=== PATIENT | male | born 1945 | race Caucasian/White ===

== ENCOUNTER 2020-06-01 17:43 | Emergency (ER) | payer MEDICARE ==
--- NOTE | 2020-06-01 18:11 | XRAY Report ---
PROCEDURE: Chest 1 View X-Ray INDICATIONS: Chest pain TECHNIQUE: One view of the chest was acquired. COMPARISON: None FINDINGS: Surgical changes and devices: None. Lungs and pleura: No pleural effusions or pneumothorax. Lungs are clear. Mediastinum: Mediastinal contours appear normal. Heart size is normal. Bones and chest wall: No suspicious bony lesions. Overlying soft tissues appear unremarkable. IMPRESSION: No acute cardiopulmonary process demonstrated radiographically. Reviewed by: Tal Martin MD on 06/01/2020 6:10 PM PDT Approved by: Tal Martin MD on 06/01/2020 6:10 PM PDT Station ID: [id number]
[2020-06-01] MEDS ORDERED: diltiaZEM INJ 5 MG/ML VIAL IVP STA (18:20)
[2020-06-01 18:21] LABS: BASOPHILS % (AUTO) 0.5 %; EOSINOPHILS # (AUTO) 0.1 10^3/uL (0.0-0.7); EOSINOPHILS % (AUTO) 1.2 %; HCT - HEMATOCRIT 46.6 % (42.0-52.0); HGB - HEMOGLOBIN 16.1 g/dL (14.0-18.0); LYMPHOCYTES # (AUTO) 1.6 10^3/uL (1.5-3.5); LYMPHOCYTES % (AUTO) 21.8 %; MEAN CORPUSCULAR HEMOGLOBIN 34.8 pg (27.0-31.0); MEAN CORPUSCULAR HGB CONC 34.5 g/dL (32.0-36.0); MEAN CORPUSCULAR VOLUME 100.6 fL (80.0-94.0); MEAN PLATELET VOLUME 9.5 fL (7.4-11.4); MONOCYTES # (AUTO) 0.8 10^3/uL (0.0-1.0); MONOCYTES % (AUTO) 11.1 %; NEUTROPHILS # (AUTO) 4.8 10^3/uL (1.5-6.6); PLT - PLATELET COUNT 201 10^3/uL (130-450); RED BLOOD COUNT 4.63 10^6/uL (4.70-6.10); RED CELL DISTRIBUTION WIDTH 12.7 % (12.0-15.0); WHITE BLOOD COUNT 7.4 x10^3/uL (4.8-10.8)
[2020-06-01 18:33] LABS: ALBUMIN 4.7 g/dL (3.2-5.5); ALBUMIN/GLOBULIN RATIO 1.4 (1.0-2.2); BILIRUBIN,TOTAL 1.1 mg/dL (0.2-1.0); CALCIUM 9.6 mg/dL (8.5-10.3); CREATININE 1.1 mg/dL (0.6-1.2); POTASSIUM 4.3 mmol/L (3.5-5.0); TOTAL PROTEIN 8.1 g/dL (6.7-8.2)
--- NOTE | 2020-06-01 18:56 | ED Physician Documentation ---
History of Present Illness - Stated complaint Stated Complaint: FLUTTERY HEART - Chief complaint Chief Complaint: Cardiac - History obtained from History obtained from: Patient - History of Present Illness Timing: Today Pain level max: 0 Pain level now: 0 - Additonal information Additional information: Patient states that he was prepping for a colonoscopy tomorrow when he checked his heart rate and noted it to be high. Has a history of atrial fibrillation. States occasionally has heart rates into the 130's and 140's during the week. No chest pain. no shortness of breath. Review of Systems Constitutional: denies: Fever, Chills Ears: denies: Ear pain Nose: denies: Rhinorrhea / runny nose, Congestion Respiratory: denies: Cough GI: denies: Nausea, Vomiting, Diarrhea Skin: denies: Rash Musculoskeletal: denies: Neck pain, Back pain Neurologic: denies: Headache PD PAST MEDICAL HISTORY - Past Medical History Cardiovascular: Hypertension, High cholesterol, Atrial fibrillation - Past Surgical History Cardiovascular: Other - Present Medications Home Medications: Ambulatory Orders Medication Instructions Recorded Confirmed Apixaban [Eliquis] 5 mg PO BID 06/01/20 06/01/20 Atorvastatin [Lipitor] 1 tab PO DAILY 06/01/20 06/01/20 Hydrochlorothiazide 1 tab PO DAILY 06/01/20 06/01/20 Metoprolol Tartrate [Lopressor] 1 tab PO BID 06/01/20 06/01/20 Potassium Chloride [K-Dur] 1 tab PO DAILY 06/01/20 06/01/20 - Allergies Allergies/Adverse Reactions: Allergies Allergy/AdvReac Type Severity Reaction Status Date / Time No Known Drug Allergies Allergy Verified 06/01/20 17:53 - Social History Does the pt smoke?: No Smoking Status: Never smoker Does the pt drink ETOH?: Yes ETOH Use: Wine PD ED PE NORMAL - Vitals Vital signs reviewed: Yes - General General: Alert and oriented X 3, No acute distress, Well developed/nourished - HEENT HEENT: PERRL, Moist mucous membranes - Neck Neck: Supple, no meningeal sign - Cardiac Cardiac: Other (tachycardic) - Respiratory Respiratory: No respiratory distress, Clear bilaterally - Abdomen Abdomen: Soft, Non tender, Non distended - Derm Derm: Warm and dry - Extremities Extremities: No edema, No calf tenderness / cord - Neuro Neuro: Alert and oriented X 3 - Psych Psych: Normal mood, Normal affect Results - Vitals Vitals: Vital Signs - 24 hr 06/01/20 06/01/20 06/01/20 17:46 18:23 18:30 Temperature 35.9 C L Heart Rate 136 H 138 H 140 H Respiratory 16 19 16 Rate Blood Pressure 153/95 H 149/105 H 140/96 H O2 Saturation 97 100 100 06/01/20 06/01/20 06/01/20 18:40 18:45 18:51 Temperature Heart Rate 140 H 86 94 Respiratory 14 15 15 Rate Blood Pressure 136/91 H 109/57 L 115/66 O2 Saturation 100 100 99 06/01/20 06/01/20 06/01/20 19:00 19:30 20:00 Temperature Heart Rate 98 109 H 105 H Respiratory 13 24 20 Rate Blood Pressure 124/71 132/89 H 132/83 H O2 Saturation 97 99 98 06/01/20 06/01/20 06/01/20 20:30 21:00 21:30 Temperature Heart Rate 121 H 72 70 Respiratory 18 19 12 Rate Blood Pressure 136/79 H 125/64 108/63 O2 Saturation 99 99 98 Oxygen O2 Source Room air - EKG (time done) 1749 Rate: Rate (enter#) (138) Rhythm: Atrial flutter (RVR) [place]: Normal QRS: Normal Ischemia: Other (rate related changes.) - Labs Labs: Laboratory Tests 06/01/20 06/01/20 06/01/20 17:56 17:56 17:56 WBC 7.4 RBC 4.63 L Hgb 16.1 Hct 46.6 MCV 100.6 H MCH 34.8 H MCHC 34.5 RDW 12.7 Plt Count 201 MPV 9.5 Neut # (Auto) 4.8 Lymph # (Auto) 1.6 [place] # (Auto) 0.8 Eos # (Auto) 0.1 Baso # (Auto) 0.0 Absolute Nucleated RBC 0.00 Nucleated RBC % 0.0 Sodium 136 Potassium 4.3 Chloride 95 L Carbon Dioxide 24 Anion Gap 17.0 H BUN 21 H Creatinine 1.1 Estimated GFR (MDRD) 65 L Glucose 125 H Calcium 9.6 Total Bilirubin 1.1 H AST 32 ALT 25 Alkaline Phosphatase 74 Troponin I High Sens 18.2 Total Protein 8.1 Albumin 4.7 Globulin 3.4 Albumin/Globulin Ratio 1.4 Lipase 36 - Rads (name of study) cxr Radiology: Prelim report reviewed, EMP read contemporaneously, See rad report (No acute cardiopulmonary process demonstrated radiographically. ) PD MEDICAL DECISION MAKING - ED course Complexity details: reviewed results, re-evaluated patient, considered differential, d/w patient ED course: Patient did slow down with diltiazem, clearly in atrial fibrillation. He was then placed on a procainamide drip and did convert back into sinus rhythm. He is anticoagulated already. Patient remained asymptomatic in the emergency department. We will have him follow-up with his doctor for further care. Patient counseled regarding signs and symptoms for which I believe and urgent re-evaluation would be necessary. Patient with good understanding of and agreement to plan and is comfortable going home at this time This document was made in part using voice recognition software. While efforts are made to proofread this document, sound alike and grammatical errors may occur. Departure - Departure Disposition: 01 Home, Self Care Clinical Impression: Atrial fibrillation with RVR Condition: Good Instructions: ED Afib Follow-Up: Leon Sen MD [Primary Care Provider] - TREVOR AUGUSTINE MD [Physician No Access] - Within 1 week Comments: Continue your medications at home as previously prescribed. Return if you worsen. Follow-up with your doctor for further care. you have converted back into sinus rhythm tonight.
[2020-06-01] MEDS ORDERED: diltiaZEM 30 MG TABLET PO STA (18:59)
[2020-06-01] MEDS ORDERED: PROCAINAMIDE 1,000 MG in SODIUM CHLORIDE 0.9% 240 ML IV SCH (20:00)
[2020-06-01] MEDS ORDERED: PROCAINAMIDE 1,000 MG in SODIUM CHLORIDE 0.9% 240 ML IV ONE (20:17)
[2020-06-01] MEDS ORDERED: PROCAINAMIDE 1,000 MG/10 ML SYRINGE ONE (20:33)
[2020-06-01 21:41] VITALS: BP 108/63
== END 2020-06-01 21:59 | disposition home or self-care (01) ==
LOC: ED 17:43
DX: I48.91 Unspecified atrial fibrillation (principal)
CPT/HCPCS: 36415; 71045; 80053; 83690; 84484; 85025; 93005; 96365; 96375; 99283; 99285; A9270; J2690

== ENCOUNTER 2020-09-04 11:58 | Emergency (ER) | payer MEDICARE ==
[2020-09-04] MEDS ORDERED: PROCAINAMIDE 1,000 MG in SODIUM CHLORIDE 0.9% 240 ML IV STA (12:25)
[2020-09-04 12:28] LABS: BASOPHILS % (AUTO) 0.4 %; EOSINOPHILS # (AUTO) 0.1 10^3/uL (0.0-0.7); EOSINOPHILS % (AUTO) 1.6 %; HCT - HEMATOCRIT 43.1 % (42.0-52.0); HGB - HEMOGLOBIN 14.6 g/dL (14.0-18.0); LYMPHOCYTES # (AUTO) 1.2 10^3/uL (1.5-3.5); LYMPHOCYTES % (AUTO) 15.4 %; MEAN CORPUSCULAR HEMOGLOBIN 33.8 pg (27.0-31.0); MEAN CORPUSCULAR HGB CONC 33.9 g/dL (32.0-36.0); MEAN CORPUSCULAR VOLUME 99.8 fL (80.0-94.0); MEAN PLATELET VOLUME 9.4 fL (7.4-11.4); MONOCYTES # (AUTO) 0.7 10^3/uL (0.0-1.0); MONOCYTES % (AUTO) 9.4 %; NEUTROPHILS # (AUTO) 5.5 10^3/uL (1.5-6.6); NEUTROPHILS % (AUTO) 72.8 %; PLT - PLATELET COUNT 189 10^3/uL (130-450); RED BLOOD COUNT 4.32 10^6/uL (4.70-6.10); RED CELL DISTRIBUTION WIDTH 13.1 % (12.0-15.0); WHITE BLOOD COUNT 7.6 x10^3/uL (4.8-10.8)
--- NOTE | 2020-09-04 12:37 | XRAY Report ---
PROCEDURE: Chest 1 View X-Ray INDICATIONS: Chest pain TECHNIQUE: One view of the chest was acquired. COMPARISON: 06/01/2020 FINDINGS: Surgical changes and devices: None. Lungs and pleura: No pleural effusions or pneumothorax. Lungs are clear. Mediastinum: Mediastinal contours appear normal. Heart size is normal. Bones and chest wall: No suspicious bony lesions. Overlying soft tissues appear unremarkable. IMPRESSION: No acute cardiopulmonary pathology. Reviewed by: Antonio Gonzalez MD on 09/04/2020 12:36 PM PDT Approved by: Antonio Gonzalez MD on 09/04/2020 12:36 PM PDT Station ID: [id number]
--- NOTE | 2020-09-04 12:37 | ED Physician Documentation ---
History of Present Illness - Stated complaint Stated Complaint: ELEVATED HEART RATE - Chief complaint Chief Complaint: Cardiac - History obtained from History obtained from: Patient - History of Present Illness Timing: Today Pain level max: 0 Pain level now: 0 - Additonal information Additional information: Patient is a 75-year-old male who presents to the emergency department with an elevated heart rate today. No chest pain. No shortness of breath. History of atrial flutter. Has converted with procainamide in the past. Nothing makes it better or worse. No medication changes other than the recent addition of pantoprazole. No recent surgeries or travel. No leg swelling. Has had multiple ablations in the past Review of Systems Ten Systems: 10 systems reviewed and negative Constitutional: denies: Fever, Chills Respiratory: denies: Cough GI: denies: Abdominal Pain, Vomiting, Diarrhea Skin: denies: Rash Musculoskeletal: denies: Neck pain, Back pain Neurologic: denies: Headache PD PAST MEDICAL HISTORY - Past Medical History Cardiovascular: Hypertension, High cholesterol, Atrial fibrillation - Past Surgical History Cardiovascular: Other - Present Medications Home Medications: Ambulatory Orders Medication Instructions Recorded Confirmed Apixaban [Eliquis] 5 mg PO BID 06/01/20 09/04/20 Atorvastatin [Lipitor] 1 tab PO DAILY 06/01/20 09/04/20 Metoprolol Tartrate [Lopressor] 1 tab PO DAILY 06/01/20 09/04/20 Potassium Chloride [K-Dur] 1 tab PO DAILY 06/01/20 09/04/20 hydroCHLOROthiazide 1 tab PO DAILY 06/01/20 09/04/20 [Hydrochlorothiazide] Pantoprazole [Protonix] 40 mg PO DAILY 09/04/20 09/04/20 - Allergies Allergies/Adverse Reactions: Allergies Allergy/AdvReac Type Severity Reaction Status Date / Time No Known Drug Allergies Allergy Verified 09/04/20 12:09 - Social History Does the pt smoke?: No Smoking Status: Never smoker Does the pt drink ETOH?: Yes PD ED PE NORMAL - Vitals Vital signs reviewed: Yes - General General: Alert and oriented X 3, No acute distress, Well developed/nourished - HEENT HEENT: PERRL, Moist mucous membranes - Neck Neck: Supple, no meningeal sign - Cardiac Cardiac: Strong equal pulses, Other (Regular, tachycardic) - Respiratory Respiratory: No respiratory distress, Clear bilaterally - Abdomen Abdomen: Soft, Non tender, Non distended - Back Back: No spinal TTP - Derm Derm: Warm and dry - Extremities Extremities: No edema, No calf tenderness / cord - Neuro Neuro: Alert and oriented X 3 - Psych Psych: Normal mood, Normal affect Results - Vitals Vitals: Vital Signs - 24 hr 09/04/20 09/04/20 09/04/20 12:09 12:42 13:09 Temperature 36.5 C Heart Rate 140 H 136 H 123 H Respiratory 16 16 18 Rate Blood Pressure 148/90 H 138/90 H 127/92 H O2 Saturation 98 98 98 09/04/20 09/04/20 09/04/20 13:30 14:00 14:15 Temperature Heart Rate 109 H 115 H 85 Respiratory 12 18 Rate Blood Pressure 123/92 H 141/102 H 114/70 O2 Saturation 97 98 09/04/20 09/04/20 09/04/20 14:20 14:25 15:25 Temperature 36.8 C 36.4 C L Heart Rate 90 90 124 H Respiratory 13 18 Rate Blood Pressure 133/70 H 142/99 H 147/95 H O2 Saturation 99 100 Oxygen O2 Source Room air - EKG (time done) 1204 Rate: Rate (enter#) (139) Rhythm: Atrial flutter [place]: Normal QRS: Normal Ischemia: Non specific changes Compare to prior EKG: Unchanged from prior EKG 1410 Rate: Rate (enter#) (88) Rhythm: Atrial flutter [place]: Normal QRS: Normal Ischemia: Normal ST segments - Labs Labs: Laboratory Tests 09/04/20 09/04/20 09/04/20 12:22 12:22 12:22 WBC 7.6 RBC 4.32 L Hgb 14.6 Hct 43.1 MCV 99.8 H MCH 33.8 H MCHC 33.9 RDW 13.1 Plt Count 189 MPV 9.4 Neut # (Auto) 5.5 Lymph # (Auto) 1.2 L [place] # (Auto) 0.7 Eos # (Auto) 0.1 Baso # (Auto) 0.0 Absolute Nucleated RBC 0.00 Nucleated RBC % 0.0 Sodium 137 Potassium 3.4 L Chloride 103 Carbon Dioxide 24 Anion Gap 10.0 BUN 19 Creatinine 0.9 Estimated GFR (MDRD) 82 L Glucose 178 H Calcium 9.4 Total Bilirubin 1.1 H AST 24 ALT 21 Alkaline Phosphatase 74 Troponin I High Sens 10.7 Total Protein 7.6 Albumin 4.4 Globulin 3.2 Albumin/Globulin Ratio 1.4 Lipase 45 - Rads (name of study) cxr Radiology: Prelim report reviewed, EMP read contemporaneously, See rad report (No acute abnormality) PD MEDICAL DECISION MAKING - ED course Complexity details: reviewed results, re-evaluated patient, considered differential, d/w patient, d/w family, d/w field sales consultant ED course: Multiple 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 No callback received. Patient's heart rate is controlled in the emergency department. He is still in A. fib, but rate controlled, 80-95 on the monitor. Patient and are comfortable going home at this time. They will return if he worsens. He was instructed on how to use his breakthrough metoprolol. Patient counseled regarding signs and symptoms for which I believe and urgent re-evaluation would be necessary. Patient with good understanding of and agreement to plan and is comfortable going home at this time This document was made in part using voice recognition software. While efforts are made to proofread this document, sound alike and grammatical errors may occur. Departure - Departure Disposition: 01 Home, Self Care Clinical Impression: Atrial flutter Qualifiers: Atrial flutter type: unspecified Qualified Code(s): I48.92 - Unspecified atrial flutter Condition: Good Instructions: ED Paroxysmal Atrial Flutter Follow-Up: Tono Mac MD [Physician No Access] - Within 1 week Comments: Follow up with your doctor for further care. Return if you worsen. Use the metoprolol as instructed for heart rates greater than 100.
[2020-09-04 12:47] LABS: ALBUMIN 4.4 g/dL (3.2-5.5); ALBUMIN/GLOBULIN RATIO 1.4 (1.0-2.2); BILIRUBIN,TOTAL 1.1 mg/dL (0.2-1.0); CALCIUM 9.4 mg/dL (8.5-10.3); CREATININE 0.9 mg/dL (0.6-1.2); POTASSIUM 3.4 mmol/L (3.5-5.0); TOTAL PROTEIN 7.6 g/dL (6.7-8.2)
[2020-09-04] MEDS ORDERED: diltiaZEM INJ 5 MG/ML VIAL IVP STA ×2 (14:02→15:38)
[2020-09-04] MEDS ORDERED: METOPROLOL TARTRATE 50 MG TABLET PO STA (14:48)
[2020-09-04 16:23] VITALS: BP 149/77
== END 2020-09-04 16:51 | disposition home or self-care (01) ==
LOC: ED 11:58
DX: I48.92 Unspecified atrial flutter (principal); I48.91 Unspecified atrial fibrillation; I10 Essential (primary) hypertension; Z79.01 Long term (current) use of anticoagulants
CPT/HCPCS: 36415; 71045; 80053; 83690; 84484; 85025; 93005; 96365; 96375; 96376; 99285; A9270; J2690

== ENCOUNTER 2020-09-06 12:59 | Outpatient (CLI) | payer MEDICARE | END 2020-09-06 13:00 | disposition EMS.NT | LOC: EMS 12:59 | DX: R00.0 Tachycardia, unspecified (principal) ==

== ENCOUNTER 2020-09-09 18:18 | Outpatient (CLI) | payer MEDICARE | END 2020-09-09 18:19 | disposition EMS.NT | LOC: EMS 18:18 | DX: R09.89 Other specified symptoms and signs involving the circulatory and respiratory systems (principal) ==

== ENCOUNTER 2023-05-30 18:41 | Emergency (ER) | payer MEDICARE ==
[2023-05-30 18:59] LABS: BASOPHILS % (AUTO) 0.4 %; EOSINOPHILS # (AUTO) 0.1 10^3/uL (0.0-0.7); EOSINOPHILS % (AUTO) 1.4 %; HCT - HEMATOCRIT 43.3 % (42.0-52.0); HGB - HEMOGLOBIN 14.6 g/dL (14.0-18.0); LYMPHOCYTES # (AUTO) 1.4 10^3/uL (1.5-3.5); LYMPHOCYTES % (AUTO) 18.2 %; MEAN CORPUSCULAR HEMOGLOBIN 32.6 pg (27.0-31.0); MEAN CORPUSCULAR HGB CONC 33.7 g/dL (32.0-36.0); MEAN CORPUSCULAR VOLUME 96.7 fL (80.0-94.0); MEAN PLATELET VOLUME 9.2 fL (7.4-11.4); MONOCYTES # (AUTO) 0.8 10^3/uL (0.0-1.0); MONOCYTES % (AUTO) 10.9 %; NEUTROPHILS # (AUTO) 5.3 10^3/uL (1.5-6.6); NEUTROPHILS % (AUTO) 68.8 %; PLT - PLATELET COUNT 285 10^3/uL (130-450); RED BLOOD COUNT 4.48 10^6/uL (4.70-6.10); RED CELL DISTRIBUTION WIDTH 12.8 % (12.0-15.0); WHITE BLOOD COUNT 7.7 x10^3/uL (4.8-10.8)
--- NOTE | 2023-05-30 19:02 | ED Physician Documentation ---
History of Present Illness - Stated complaint Stated Complaint: HIGH HEART RATE - Chief complaint Chief Complaint: Cardiac - History obtained from History obtained from: Patient - Additonal information Additional information: He has a history of paroxysmal atrial fibrillation maintained on Eliquis. He has had 2 failed ablations in the past. Today he felt fatigued on his walk and checked his heart rate and it was high. There is no associated chest pain or trouble breathing. PD PAST MEDICAL HISTORY - Past Medical History Past Medical History: Yes Cardiovascular: Hypertension, High cholesterol, Atrial fibrillation - Past Surgical History Past Surgical History: Yes Cardiovascular: Other - Present Medications Home Medications: Ambulatory Orders Medication Instructions Recorded Confirmed Apixaban [Eliquis] 5 mg PO BID 06/01/20 05/30/23 Atorvastatin [Lipitor] 1 tab PO DAILY 06/01/20 05/30/23 Metoprolol Tartrate [Lopressor] 1 tab PO DAILY 06/01/20 05/30/23 Potassium Chloride [K-Dur] 1 tab PO DAILY 06/01/20 05/30/23 hydroCHLOROthiazide 1 tab PO DAILY 06/01/20 05/30/23 [Hydrochlorothiazide] Pantoprazole [Protonix] 40 mg PO DAILY 09/04/20 05/30/23 - Allergies Allergies/Adverse Reactions: Allergies Allergy/AdvReac Type Severity Reaction Status Date / Time No Known Drug Allergies Allergy Verified 05/30/23 18:44 - Social History Does the pt smoke?: No Smoking Status: Never smoker Does the pt drink ETOH?: Yes Does the pt have substance abuse?: No - Immunizations Immunizations are current?: Yes PD ED PE NORMAL - Vitals Vital signs reviewed: Yes - General General: Alert and oriented X 3, No acute distress - Cardiac Cardiac: Other (Rapid and irregular without murmur) - Respiratory Respiratory: No respiratory distress, Clear bilaterally - Abdomen Abdomen: Non tender - Extremities Extremities: No edema, No calf tenderness / cord - Neuro Neuro: Alert and oriented X 3 Results - Vitals Vitals: Vital Signs - 24 hr 05/30/23 05/30/23 05/30/23 18:44 19:02 19:30 Temperature 36.8 C Heart Rate 136 H 96 90 Respiratory 16 18 16 Rate Blood Pressure 127/79 131/93 H 105/71 O2 Saturation 100 98 98 If not protocol : Oxygen Flow, liters/minute 05/30/23 05/30/2305/29/24 20:00 20:30 20:55 Temperature Heart Rate 82 84 92 Respiratory 16 16 14 Rate Blood Pressure 96/56 L 101/59 L 118/77 O2 Saturation 98 99 99 If not protocol : Oxygen Flow, liters/minute 05/30/23 05/30/23 05/30/23 21:05 21:09 21:14 Temperature Heart Rate 100 99 69 Respiratory 16 16 22 Rate Blood Pressure 119/79 119/94 H 104/90 H O2 Saturation 99 99 98 If not protocol 2 6 : Oxygen Flow, liters/minute 05/30/23 05/30/23 05/30/23 21:15 21:22 21:30 Temperature Heart Rate 69 68 66 Respiratory 16 17 16 Rate Blood Pressure 95/55 L 104/60 O2 Saturation 98 98 If not protocol : Oxygen Flow, liters/minute 05/30/23 05/30/23 05/30/23 21:37 21:51 22:00 Temperature Heart Rate 66 66 66 Respiratory 16 16 16 Rate Blood Pressure 104/59 L 108/61 111/60 O2 Saturation 99 99 100 If not protocol : Oxygen Flow, liters/minute 05/30/23 22:10 Temperature Heart Rate 66 Respiratory 16 Rate Blood Pressure 114/68 O2 Saturation 99 If not protocol : Oxygen Flow, liters/minute Oxygen O2 Source Room air - EKG (time done) 1856 EKG releavant findings:: EKG personally interpreted by author of this note. Relevant findings are: Rate: Rate (enter#) (116) Rhythm: Atrial fibrillation [place]: RAD QRS: Low voltage Ischemia: No: ST elevation c/w ischemia 2041 EKG releavant findings:: EKG personally interpreted by author of this note. Relevant findings are: Rate: Rate (enter#) (79) Rhythm: Atrial flutter [place]: Normal Intervals: Wide QRS (ivcd) Ischemia: Normal ST segments 2128 EKG releavant findings:: EKG personally interpreted by author of this note. Relevant findings are: Rate: Rate (enter#) (68) Rhythm: NSR (w pac) [place]: Normal Intervals: Prolonged [place], Other (ivcd) Ischemia: Normal ST segments - Labs Labs: Laboratory Tests 05/30/23 05/30/23 18:55 18:55 WBC 7.7 RBC 4.48 L Hgb 14.6 Hct 43.3 MCV 96.7 H MCH 32.6 H MCHC 33.7 RDW 12.8 Plt Count 285 MPV 9.2 Neut # (Auto) 5.3 Lymph # (Auto) 1.4 L [place] # (Auto) 0.8 Eos # (Auto) 0.1 Baso # (Auto) 0.0 Absolute Nucleated RBC 0.00 Nucleated RBC % 0.0 Sodium 134 L Potassium 3.7 Chloride 98 L Carbon Dioxide 28 Anion Gap 8.0 BUN 20 Creatinine 1.1 Estimated GFR (MDRD) 64 L Glucose 99 Calcium 9.5 Magnesium 1.9 Total Bilirubin 0.9 AST 22 ALT 18 Alkaline Phosphatase 63 Total Protein 7.3 Albumin 4.5 Globulin 2.8 Albumin/Globulin Ratio 1.6 Procedures - Procedural sedation Sedation prep: Informed consent, Time out completed, PE performed, ASA 2 - mild disease Sedation Medications: propofol (60mg ivp x 1) Mallampati classification: II Patient status during sedation: Responds to tactile Sedation recovery: Recovered uneventfully Time in sedation (Minutes): 15 - Cardioversion - Major 1 Time of attempt: 21:10 Indication: Tachyarrhythmia Risks, benefits, alternatives explained to: Pt CS via: Pads, AP approach Sync: Biphasic, 100j Post cardioversion rhythm: NSR Performed by: ED MD PD Medical Decision Making - ED course Complexity details: reviewed results (CBC and CMP nl) ED course: 78-year-old gentleman with history of paroxysmal atrial fibrillation presents with symptomatic atrial fibrillation today. He is a good candidate for cardioversion given that he is therapeutically anticoagulated with Eliquis. No chest pain or trouble breathing to suggest ACS. Initial step was his rate control with 10 mg of diltiazem and he was rate controlled after that. Subsequently put on a procainamide drip at the completion of which he was still in atrial fibrillation and consented for electrical cardioversion and was successfully cardioverted on the first synchronized shock at 100 J. Departure - Departure Disposition: 01 Home, Self Care Clinical Impression: Atrial fibrillation Qualifiers: Atrial fibrillation type: paroxysmal Qualified Code(s): I48.0 - Paroxysmal atrial fibrillation Condition: Good Record reviewed to determine appropriate education?: Yes Instructions: Atrial Fibrillation Dc Comments: Continue current medications, schedule a follow-up appointment with your design teacher. For your records you were found to be in symptomatic atrial fibrillation and rate controlled with IV diltiazem. Subsequently a procainamide drip was done over 1 hour without cardioversion and then you are electrically cardioverted with 60 mg of propofol at 100 J with successful cardioversion to normal sinus rhythm. Return if worse. Do not drive tonight. Forms: PCP List Discharge Date/Time: 05/30/23 22:21
[2023-05-30 19:13] LABS: ALBUMIN 4.5 g/dL (3.2-5.5); ALBUMIN/GLOBULIN RATIO 1.6 (1.0-2.2); BILIRUBIN,TOTAL 0.9 mg/dL (0.2-1.0); CALCIUM 9.5 mg/dL (8.5-10.3); CREATININE 1.1 mg/dL (0.6-1.3); MAGNESIUM 1.9 mg/dL (1.7-2.3); POTASSIUM 3.7 mmol/L (3.5-4.5); TOTAL PROTEIN 7.3 g/dL (6.4-8.9)
[2023-05-30] MEDS ORDERED: PROCAINAMIDE 1,000 MG/10 ML SYRINGE ONE (19:28)
[2023-05-30] MEDS: diltiaZEM INJ 5 MG/ML VIAL IVP STA (19:29)
[2023-05-30] MEDS: PROCAINAMIDE 1,000 MG in SODIUM CHLORIDE 0.9% 240 ML IV STA (19:34)
[2023-05-30] MEDS: PROPOFOL 200 MG/20 ML VIAL IVP STA (21:11)
[2023-05-30 22:19] VITALS: BP 114/68; O2SAT 99
== END 2023-05-30 22:21 | disposition home or self-care (01) ==
LOC: ED 18:41
DX: I48.91 Unspecified atrial fibrillation (principal); Z79.01 Long term (current) use of anticoagulants; I10 Essential (primary) hypertension
CPT/HCPCS: 36415; 80053; 83735; 85025; 92960; 93005; 96365; 96375; 99152; 99285; J2690

== ENCOUNTER 2023-11-06 08:12 | Outpatient (CLI) | payer MEDICARE | END 2023-11-06 23:59 | disposition left against medical advice (07) | LOC: EMS 08:12 | DX: I10 Essential (primary) hypertension (principal) ==

== ENCOUNTER 2023-11-14 21:06 | Outpatient (CLI) | payer MEDICARE | END 2023-11-14 21:07 | disposition critical access hospital (66) | LOC: EMS 21:06 | DX: I48.91 Unspecified atrial fibrillation (principal) | CPT/HCPCS: A0425; A0429 ==

== ENCOUNTER 2023-11-14 21:41 | Emergency (ER) | payer MEDICARE ==
[2023-11-14 22:04] LABS: BASOPHILS % (AUTO) 0.4 %; EOSINOPHILS # (AUTO) 0.2 10^3/uL (0.0-0.7); EOSINOPHILS % (AUTO) 3.7 %; HCT - HEMATOCRIT 41.2 % (42.0-52.0); HGB - HEMOGLOBIN 14.1 g/dL (14.0-18.0); LYMPHOCYTES # (AUTO) 1.3 10^3/uL (1.5-3.5); MEAN CORPUSCULAR HGB CONC 34.2 g/dL (32.0-36.0); MEAN CORPUSCULAR VOLUME 96.5 fL (80.0-94.0); MEAN PLATELET VOLUME 9.1 fL (7.4-11.4); MONOCYTES # (AUTO) 0.9 10^3/uL (0.0-1.0); MONOCYTES % (AUTO) 16.6 %; NEUTROPHILS # (AUTO) 2.9 10^3/uL (1.5-6.6); NEUTROPHILS % (AUTO) 53.9 %; PLT - PLATELET COUNT 196 10^3/uL (130-450); RED BLOOD COUNT 4.27 10^6/uL (4.70-6.10); RED CELL DISTRIBUTION WIDTH 12.9 % (12.0-15.0); WHITE BLOOD COUNT 5.4 x10^3/uL (4.8-10.8)
[2023-11-14 22:14] LABS: ALBUMIN 4.1 g/dL (3.2-5.5); ALBUMIN/GLOBULIN RATIO 1.5 (1.0-2.2); BILIRUBIN,TOTAL 0.5 mg/dL (0.2-1.0); CALCIUM 8.9 mg/dL (8.5-10.3); POTASSIUM 3.8 mmol/L (3.5-4.5); TOTAL PROTEIN 6.8 g/dL (6.4-8.9)
--- NOTE | 2023-11-14 22:31 | ED Physician Documentation ---
History of Present Illness - Stated complaint Stated Complaint: PALPITATIONS - Chief complaint Chief Complaint: Cardiac - History obtained from History obtained from: Patient - Additonal information Additional information: HPI from patient (I was unavailable when EMS arrived with patient and thus I was not present for their report). Patient has dementia which limits his ability to provide HPI/ROS, but I am able to ascertain adequate information from him for purposes of ED eval/treatment. Patient indicates to me that he and his take daily walks including this afternoon and that he measures his pulse and blood pressures after returning home and that tonight the heart rate was high. He cannot recall how high but enough to cause him and his concern. He denies having any symptoms inclu ding palpitations, chest pain, lightheadedness, fatigue. He has h/o atrial fibrillation and he is able to confirm that his medications include eliquis. He indicates to me he was here for similar problems recently and I see in [facility] a visit to this ED in May 2023 for KATYA (given cardizem , then procainamide, and then cardioverted). The ED MD note from that visit indicates patient has undergone cardiac ablation in the past for atrial fibrillation. PD PAST MEDICAL HISTORY - Past Medical History Past Medical History: Yes Cardiovascular: Hypertension, High cholesterol, Atrial fibrillation Neuro: Dementia - Past Surgical History Past Surgical History: Yes Cardiovascular: Other - Present Medications Home Medications: Ambulatory Orders Medication Instructions Recorded Confirmed Apixaban [Eliquis] 5 mg PO BID 06/01/20 05/30/23 Atorvastatin [Lipitor] 1 tab PO DAILY 06/01/20 05/30/23 Metoprolol Tartrate [Lopressor] 1 tab PO DAILY 06/01/20 05/30/23 Potassium Chloride [K-Dur] 1 tab PO DAILY 06/01/20 05/30/23 hydroCHLOROthiazide 1 tab PO DAILY 06/01/20 05/30/23 [Hydrochlorothiazide] Pantoprazole [Protonix] 40 mg PO DAILY 09/04/20 05/30/23 - Allergies Allergies/Adverse Reactions: Allergies Allergy/AdvReac Type Severity Reaction Status Date / Time No Known Drug Allergies Allergy Verified 11/14/23 21:51 - Social History Does the pt smoke?: No Smoking Status: Never smoker Does the pt drink ETOH?: Yes Does the pt have substance abuse?: No - Immunizations Immunizations are current?: Yes PD ED PE NORMAL - Vitals Vital signs reviewed: Yes - General General: Alert and oriented X 3 (AAOx2), No acute distress, Well developed/nourished - Cardiac Cardiac: No murmur - Respiratory Respiratory: No respiratory distress, Clear bilaterally - Abdomen Abdomen: Soft, Non tender - Extremities Extremities: No edema PD ED PE EXPANDED - Cardiac Cardiac: Regular Rate, Irregularly irregular Results - Vitals Vitals: Vital Signs - 24 hr 11/14/23 11/14/23 11/14/23 21:51 22:24 22:30 Temperature 36.8 C 36.6 C Heart Rate 112 H 100 97 Respiratory 16 16 16 Rate Blood Pressure 132/83 H 131/84 H 130/80 O2 Saturation 97 97 98 11/14/23 11/14/23 11/15/23 23:00 23:30 00:00 Temperature 36.6 C Heart Rate 101 H 97 91 Respiratory 16 16 16 Rate Blood Pressure 131/88 H 131/81 H 118/76 O2 Saturation 99 98 98 11/15/23 11/15/23 11/15/23 00:30 01:00 01:55 Temperature 36.6 C 36.5 C Heart Rate 94 94 92 Respiratory 16 16 16 Rate Blood Pressure 129/86 H 127/80 127/80 O2 Saturation 97 98 98 Oxygen O2 Source Room air - EKG (time done) No standard instances EKG releavant findings:: EKG personally interpreted by author of this note. Relevant findings are: Rate: Rate (enter#) (103) Rhythm: Atrial flutter, Atrial fibrillation [place]: Normal QRS: Normal Ischemia: Normal ST segments - Labs Labs: Laboratory Tests 11/14/23 11/14/23 21:46 21:46 WBC 5.4 RBC 4.27 L Hgb 14.1 Hct 41.2 L MCV 96.5 H MCH 33.0 H MCHC 34.2 RDW 12.9 Plt Count 196 MPV 9.1 Neut # (Auto) 2.9 Lymph # (Auto) 1.3 L Early # (Auto) 0.9 Eos # (Auto) 0.2 Baso # (Auto) 0.0 Absolute Nucleated RBC 0.00 Nucleated RBC % 0.0 Sodium 128 L Potassium 3.8 Chloride 94 L Carbon Dioxide 29 Anion Gap 5.0 L BUN 17 Creatinine 1.0 Estimated GFR (MDRD) 72 L Glucose 122 H Calcium 8.9 Total Bilirubin 0.5 AST 17 ALT 16 Alkaline Phosphatase 53 Total Protein 6.8 Albumin 4.1 Globulin 2.7 Albumin/Globulin Ratio 1.5 Lipase 48 PD Medical Decision Making - ED course Complexity details: reviewed old records, reviewed results, re-evaluated patient, considered differential, d/w patient ED course: Hyponatremia noted (128); this would not be causative nor contributory to reason for coming to ED tonight (rapid heart rate) and thus it is an incidental finding. Otherwise no concerning findings on CBC, ER abdominal panel. Without intervention, patient's heart rate was mostly within normal range with a few brief readings of 100-(lower) 110s, but mostly mid/upper 90s-100 bpm throughout ED stay. Normal BP readings during ED stay. Patient tells me he thinks he is more often in a normal cardiac rhythm than in atrial fibrillation/flutter although not clear what he is basing this on given that he is asymptomatic tonight despite being in atrial flutter/fibrillation. We discussed options for conversion to NSR including no interventions, given asymptomatic and stable vital signs including heart rate as noted, above. However, given that his heart rate is at upper end of normal range, he will likely have tachycardia with ambulation and ADL and thus I recommended procainamide and he defers to my judgment. This is given IV over 1 hour without change in rhythm/rate/BP. At this point, I believe the risks of electrocardioversion and conscious sedation outweigh potential benefit and tiffany elizondo agrees with d/c without conversion to NSR. He is appropriately anticoagulated (eliquis). Return precautions reviewed. Given his (seemingly mild) dementia, I wrote the relevant findings, interventions, and follow up recommendations into his d/c instructions (patient requested that I do so for the benefit of his spouse who can then review this information at home; she is not in ED during his stay) Departure - Departure Disposition: 01 Home, Self Care Clinical Impression: Atrial fibrillation and flutter, Hyponatremia Condition: Good Instructions: ED Afib, ED Hyponatremia Comments: The EKG shows atrial fibrillation/atrial flutter, and during your entire emergency department stay, you had this same rhythm on the campaign associate. Fortunately, the heart rate was within acceptable range throughout your ER stay (did not go too high nor too low). Your blood test results are all reassuring; as we discussed, the only notable finding is a low sodium level (128). This would not cause nor contribute to the abnormal cardiac rhythm, but can cause other problems. The sodium level tonight is not nearly low enough for immediate concern, but you should certainly mention this to your primary care provider when you next follow-up with them. You were given IV procainamide during your emergency department stay. This medication can sometimes convert the cardiac rhythm from atrial fibrillation into a normal ("sinus") rhythm. Unfortunately, it did not have this desired effect. Because you are on appropriate medication for atrial fibrillation (most specifically, an appropriate blood-thinner (Eliquis)), and because your heart rate and blood pressures are within acceptable ranges at this time, there is no indication for more aggressive measures such as electrocardioversion. Certainly, if you develop any concerning signs/symptoms (such as lightheadedness, weakness, chest pain, shortness of breath, or if you are feeling rapid and ongoing palpitations), you can always return to the emergency department for reevaluation. Otherwise, as we discussed, I recommend that you contact both your cardiology nurse and your primary care provider in the morning when the office is open to arrange for the next available appointment with both of these medical practitioners for follow-up/reevaluation. Discharge Date/Time: 11/15/23 02:16
[2023-11-14] MEDS ORDERED: PROCAINAMIDE 1,000 MG/10 ML SYRINGE ONE (22:56)
[2023-11-14] MEDS: PROCAINAMIDE 1,000 MG in SODIUM CHLORIDE 0.9% 240 ML IV STA (23:01)
[2023-11-15 01:22] VITALS: BP 127/80; O2SAT 98
== END 2023-11-15 02:16 | disposition home or self-care (01) ==
LOC: EDUNIT# → ED 21:41
DX: I48.91 Unspecified atrial fibrillation (principal); I48.92 Unspecified atrial flutter; E87.1 Hypo-osmolality and hyponatremia; F03.90 Unspecified dementia, unspecified severity, without behavioral disturbance, psychotic disturbance, mood disturbance, and anxiety; Z79.01 Long term (current) use of anticoagulants
CPT/HCPCS: 36415; 80053; 83690; 85025; 93005; 96365; 99284; 99285; J2690

== ENCOUNTER 2023-11-15 02:15 | Outpatient (CLI) | payer MEDICARE | END 2023-11-15 23:59 | disposition home or self-care (01) | LOC: EMS 02:15 | PROVIDERS: ATTEND Emergency Medicine | DX: R41.0 Disorientation, unspecified (principal); I48.91 Unspecified atrial fibrillation; F03.90 Unspecified dementia, unspecified severity, without behavioral disturbance, psychotic disturbance, mood disturbance, and anxiety | CPT/HCPCS: A0425; A0428 ==